=== PATIENT | male | born 1960 | race Caucasian/White ===

== ENCOUNTER → 2020-08-01 10:37 | Outpatient (CLI) | payer BC, SELFPAY ==
--- NOTE | 2020-08-01 | DI.US.S_ITS ---
PROCEDURE: US ABDOMEN COMPLETE INDICATIONS: Right upper quadrant pain TECHNIQUE: Real-time scanning was performed of the abdominal and retroperitoneal organs, with image documentation. COMPARISON: None. FINDINGS: Liver: The liver demonstrates normal size. The liver demonstrates generalized increased echogenicity. This decreases ultrasound sensitivity for detection of hepatic masses. Gallbladder: No findings of gallstones or sludge are seen. The gallbladder wall is not thickened, measuring 3 mm or less. No specific pericholecystic fluid is seen. The sonographic Álvarez sign is negative. Biliary ducts: Intrahepatic bile ducts are non-dilated. Extrahepatic bile duct caliber measures 1 mm. Normal is 6-7 mm or less in diameter, or 10 mm or less post-cholecystectomy. Pancreas: Not well seen. Spleen: Spleen is normal in size and homogeneous in echotexture. Kidneys: Kidneys are normal in size and echotexture. Right kidney measures 10.4 cm long; left kidney measures 10.1 cm long. No hydronephrosis or nephrolithiasis. No solid masses. Aorta: Visualized aorta is normal in caliber at less than 3 cm. Iliacs: Proximal common iliac arteries are normal in caliber at less than 2.5 cm. IVC: Intrahepatic inferior vena cava is patent. Miscellaneous: No free abdominal fluid. IMPRESSION: The gallbladder demonstrates a normal sonographic appearance. No biliary dilatation is seen. The liver demonstrates increased echogenicity. This finding is nonspecific, yet it is most commonly attributed to fatty infiltration. Dictated by: Jad Díaz M.D. on 08/01/2020 at 11:18 Approved by: Jad Díaz M.D. on 08/01/2020 at 11:19
== END ==
PROVIDERS: PCP Family Medicine; Referring Provider Family Medicine; Visit Provider Family Medicine
DX: R10.11 Right upper quadrant pain (principal)
CPT/HCPCS: 76700

== ENCOUNTER 2022-12-21 20:26 | Emergency (ER) | payer BC, SELFPAY ==
[2022-12-21 20:43] VITALS: BP 122/83; PULSE 67; RESP 16; TEMP 36.9; O2SAT 96; BMI 30.7
--- NOTE | 2022-12-21 20:50 | DI.RAD.S_ITS ---
PROCEDURE: XR ANKLE LT MIN 3V INDICATIONS: fall/injury TECHNIQUE: 3 views of the ankle were acquired. COMPARISON: None. FINDINGS: Bones: There is a mildly comminuted fracture of the calcaneus including involvement of the anterior process with extension to the subtalar joint. Ankle mortise is normally aligned. No suspicious bony lesions. Soft tissues: There is a small tibiotalar joint effusion. Achilles tendon appears intact. IMPRESSION: 1. Comminuted fracture of the calcaneus. Consider imaging of the spine to excluded a compression fracture. Dictated by: Paresh Ferguson M.D. on 12/21/2022 at 22:04 Approved by: Paresh Ferguson M.D. on 12/21/2022 at 22:06
--- NOTE | 2022-12-21 23:37 | DI.RAD.S_ITS ---
PROCEDURE: XR CALCANEOUS LT MIN 2V INDICATIONS: per ortho TECHNIQUE: Two views of the calcaneus were acquired. COMPARISON: [facility], CR, XR ANKLE LT MIN 3V, 12/21/2022, 20:59. FINDINGS: Bones: There is a comminuted fracture of the calcaneus with extension to the subtalar joint. No definite talar fracture. Soft tissues: No suspicious calcifications. Achilles tendon appears intact. IMPRESSION: 1. Comminuted fracture of the calcaneus with extension to the subtalar joint. Dictated by: Paresh Ferguson M.D. on 12/22/2022 at 0:35 Approved by: Paresh Ferguson M.D. on 12/22/2022 at 0:36
[2022-12-21 23:38] VITALS: PULSE 65; O2SAT 97
--- NOTE | 2022-12-21 23:42 | DI.RAD.S_ITS ---
PROCEDURE: XR HIP W PEL IF DONE LT 2V INDICATIONS: fall with heel fx, hip pain TECHNIQUE: AP pelvis with lateral view of the left hip. COMPARISON: [facility], CR, XR ANKLE LT MIN 3V, 12/21/2022, 20:59. FINDINGS: Bones: No displaced fractures or dislocations. Pelvic ring appears intact. No suspicious bony lesions. Soft tissues: The visualized bowel gas pattern is normal. No suspicious soft tissue calcifications. IMPRESSION: 1. No displaced fracture or dislocation. Dictated by: Paresh Ferguson M.D. on 12/22/2022 at 0:36 Approved by: Paresh Ferguson M.D. on 12/22/2022 at 0:37
--- NOTE | 2022-12-21 23:42 | DI.RAD.S_ITS ---
PROCEDURE: XR LUMBAR SPINE 2-3V INDICATIONS: fall with calcaneal fx TECHNIQUE: 3 views of the lumbar spine were acquired. COMPARISON: None. FINDINGS: Bones: 5 [id number] vertebrae are present. There is minimal retrolisthesis at T12-L1, L1-L2, L2-L3, L3-L4, and L4-5. No vertebral body compression fractures. There is mild facet arthropathy in the lower lumbar spine. No suspicious bony lesions. Soft tissues: Overlying bowel gas pattern is normal. No suspicious soft tissue calcifications. IMPRESSION: 1. No vertebral body compression fractures in the lumbar spine. Dictated by: Paresh Ferguson M.D. on 12/22/2022 at 0:37 Approved by: Paresh Ferguson M.D. on 12/22/2022 at 0:53
--- NOTE | 2022-12-21 23:51 | PC.NURSE ---
Pedal pulse of left foot heard by Doppler. Strong and regular. CMS intact of left foot.
[2022-12-22 00:05] VITALS: PULSE 66; O2SAT 98
[2022-12-22 00:30] VITALS: PULSE 65; O2SAT 94
--- NOTE | 2022-12-22 00:49 | DI.CT.S_ITS ---
PROCEDURE: CT LE LT W CON INDICATIONS: complex calcaneal fx, per ortho TECHNIQUE: Noncontrast 1-1.5 mm axial sections acquired from above the tibiotalar joint to the bottom of the calcaneus, with coronal and sagittal reformats. COMPARISON: , CR, XR ANKLE LT MIN 3V, 12/21/2022, 20:59. , CR, XR CALCANEOUS LT MIN 2V, 12/21/2022, 23:44. FINDINGS: Image quality: Excellent. Bones: There is a markedly comminuted fracture of the calcaneus with extension to the posterior facet of the subtalar joint. Fracture also extends anteriorly to the calcaneocuboid articulation. Remaining visualized osseous structures appear intact. Soft tissues: There are small subtalar and tibiotalar joint effusions. Soft tissue swelling and subcutaneous edema demonstrated within the hindfoot. The Achilles tendon appears intact. IMPRESSION: 1. Markedly comminuted calcaneal fracture. Dictated by: Paresh Ferguson M.D. on 12/22/2022 at 1:50 Approved by: Paresh Ferguson M.D. on 12/22/2022 at 1:53
[2022-12-22 01:00] VITALS: PULSE 65; O2SAT 95
[2022-12-22 01:30] VITALS: BP 146/76; PULSE 64; O2SAT 94
[2022-12-22] MEDS: HYDROCODONE/ACET 5/325 PREPACK 1 BOTTLE MISC (01:34)
[2022-12-22 01:36] VITALS: BP 146/76; PULSE 70; O2SAT 95
[2022-12-22 02:00] VITALS: BP 147/87; PULSE 63; O2SAT 95
--- NOTE | 2022-12-22 02:36 | ED_ITS ---
HPI - Fall General Chief Complaint: Fall Stated Complaint: fell from ladder/hurt left ankle Time Seen by Provider: 12/21/22 20:47 Source: patient Mode of arrival: Wheelchair History of Present Illness HPI Narrative: 62-year-old male nonsmoker with noncontributory medical history presents with his in the chief complaint of left foot pain. He had been climbing on a ladder when he misstepped and fell a reported 4 ft landing on his left foot. He denies any head neck or back pain. He has no chest pain or shortness of breath. He denies any upper extremity injury. As the day wears on he states he is starting no some pain in his left lateral hip and wonders if he might have injured himself here as well. He very clearly states he has no back pain. He denies any numbness, tingling or weakness. He has no urinary complaints. Related Data Previous Rx's Medication Instructions Recorded hydrocodone 5 mg-acetaminophen 325 1 tab PO Q4-6H PRN pain #20 tabs 12/22/22 mg tablet ondansetron 4 mg disintegrating 4 mg PO TID-QID PRN nausea and 12/22/22 tablet vomiting #10 tabs Review of Systems Review of Systems Narrative: GENERAL: Denies chills, fatigue, malaise, fever, sweats. HEENT: Denies sinus pain, ear pain, sore throat, difficulty swallowing, dizziness. RESPIRATORY: Denies dyspnea, cough, wheezing, hemoptysis, sputum. CARDIOVASCULAR: Denies chest pain, palpitations, orthopnea, edema, GASTROINTESTINAL: Denies nausea, vomiting, abdominal pain, diarrhea, constipation, melena. : Denies dysuria, frequency, incontinence, hematuria, urinary retention. MUSCULOSKELETAL: See HPI SKIN: Denies rash, skin lesions, or other NEUROLOGIC: Denies weakness, headache, numbness, change in speech, confusion, seizures, incoordination. PSYCHIATRIC: No concerning psychosocial issues. 12 point review of systems is negative except for those stated above Patient History Social History Smoking Status: Never smoker Smoking Status: Never smoker Substance Use Type: does not use Exam Narrative Exam Narrative: GENERAL: [62] year old patient appears stated age. Well-developed patient, in mild distress. GCS 15 HEAD: Atraumatic. Normocephalic. EYES: Pupils equal round and reactive. Extraocular motions intact. No scleral icterus. No injection or drainage. ENT: Nose without bleeding, purulent drainage. Throat without erythema, tonsillar hypertrophy or exudate. Airway patent. NECK: Trachea midline. Non tender CARDIOVASCULAR: Regular rate and rhythm without murmurs, gallops, or rubs. RESPIRATORY: Clear to auscultation. Breath sounds equal bilaterally. No wheezes, rales, or rhonchi. GASTROINTESTINAL: Abdomen soft, non-tender, nondistended. EXTREMITIES: Mild tenderness to palpation of left lateral hip, no obvious deformity, shortening or rotation of lower extremity. No pain on palpation of femur or knee. Minimal pain on palpation of ankle, there is significant tenderness on palpation of heel. This is closed, isolated and neurovascularly intact BACK: Nontender without deformity or crepitance. No flank tenderness. No saddle anesthesia NEURO: AOx3. SKIN: No rash or erythema of visible areas Initial Vital Signs Initial Vital Signs: Vital Signs Temperature 98.4 F 12/21/22 20:43 Pulse Rate 67 12/21/22 20:43 Respiratory Rate 16 12/21/22 20:43 Blood Pressure 122/83 12/21/22 20:43 Pulse Oximetry 96 12/21/22 20:43 Oxygen Delivery Method Room Air 12/21/22 20:43 Procedures Orthopedic Splinting/Casting Injury #1: Side: left Lower Extremity Injury Location: foot Lower Extremity Immobilizer: posterior splint and stirrup splint Other Orthopedic Equipment: crutches Post splinting neuro exam: intact Post splinting vascular exam: intact Placed by: Nursing Course Orders Ordered: ED Orders 12/21/22 20:50 XR ankle LT min 3V Stat 12/21/22 23:37 XR calcaneus LT min 2V Stat 12/21/22 23:42 XR hip w pel if done LT 2V Stat XR lumbar spine 2-3V Stat 12/22/22 00:49 CT LE LT wo con Stat Discontinued Medications Hydrocodone Bitart/Acetaminophen (Hydrocodone/Acet 5/325 Prepack) 1 bottle MISC SEEINSTR ONE Stop: 12/21/22 23:43 Last Admin: 12/22/22 01:34 Dose: 1 bottle Documented By: SB Consultations Consultation #1: Discussed with on-call orthopedist, Dr. Gonzalez, after receipt of initial x-ray he requests dedicated calcaneal x-ray as well as CT, large bulky dressing, nonweightbearing, pain control and DC with follow up Vital Signs Vital signs: Vital Signs - 8 hr 12/21/22 20:43 12/21/22 23:38 12/22/22 00:05 Temperature 98.4 F Pulse Rate 67 65 66 Respiratory Rate 16 Blood Pressure 122/83 Pulse Oximetry 96 97 98 Oxygen Delivery Method Room Air 12/22/22 00:30 12/22/22 01:00 12/22/22 01:30 Temperature Pulse Rate 65 65 64 Respiratory Rate Blood Pressure 146/76 H Pulse Oximetry 94 95 94 Oxygen Delivery Method 12/22/22 01:36 12/22/22 01:36 12/22/22 02:00 Temperature Pulse Rate 70 Respiratory Rate Blood Pressure 146/76 H 147/87 H Pulse Oximetry 95 Oxygen Delivery Method 12/22/22 02:00 Temperature Pulse Rate 63 Respiratory Rate Blood Pressure Pulse Oximetry 95 Oxygen Delivery Method MDM - Fall Imaging Data Extremity x-ray #1: Radiologist's Impression: Comminuted fracture of calcaneus [facility] Narrative Medical decision making narrative: [61] year old patient presents with left foot pain after fall Multiple etiologies for patient's symptoms considered including, but not limited to: Fracture, dislocation, sprain, contusion versus other [] Prior Charts reviewed in our EMR Primary Historian: patient Imaging reviewed: Multiple imaging modalities demonstrate comminuted left calcaneal fracture Consultations: Discussion with on-call orthopedist as noted above Patient's symptoms improved over duration of stay with above-stated therapies. Findings and discharge diagnosis discussed with patient/family followed by verbalization of understanding Return precautions discussed with patient/family whom verbalize understanding of diagnosis and plan Discharge Plan Departure Patient Disposition: Home Clinical Impression: Calcaneal fracture Instructions: DI for Foot Fracture Activity Restrictions/Additional Instructions: *You have been diagnosed with [comminuted left calcaneal fracture] *What to do: *Please continue to take your regular medications as directed. [ x] New medication prescriptions sent to your pharmacy: [[facility]] [ ] New medication written as a paper prescription [x] Tylenol and occasional Motrin for pain *Please follow up with Dr. Tejada ] of [facility] in 2-3 days, call for an appointment. Let them know you were seen in the Emergency Department and that we ask that you be seen in follow up. We will electronically transmit a record of today's note if your PCP is in our system *Return to Emergency Department if you should have any new, worsening or concerning symptoms, such as [worsening pain, significant swelling, cold extremities, numbness, tingling, weakness or other bothersome symptoms NO WEIGHT BEARING Splint Care: Keep splint clean and dry. Elevated affected body part to decrease swelling. OK to use ice pack on the affected body part. Use for 15-20 minutes each time, for 5-6x per day. If you develop worsening pain, numbness, tingling, discoloration of the affected body part, loosen the splint by loosening the OREN wrap, and either see your doctor for an urgent re-assessment, or return to the Emergency Department. Return to the Emergency Department for any new or worsening symptoms. Prescriptions: New hydrocodone-acetaminophen 5-325 mg tablet 1 tab PO Q4-6H PRN (Reason: pain) Qty: 20 0RF ondansetron 4 mg tablet,disintegrating 4 mg PO TID-QID PRN (Reason: nausea and vomiting) Qty: 10 0RF Referrals: Terrance Gonzalez MD [Physician] - Jonathan Stratton MD [Primary Care Provider] - Stand Alone Forms: Patient Portal/API
== END 2022-12-22 03:35 | disposition home or self-care (01) ==
PROVIDERS: Emergency Provider Emergency Medicine; PCP Family Medicine
DX: S92.002A Unspecified fracture of left calcaneus, initial encounter for closed fracture (principal); M25.552 Pain in left hip; W11.XXXA Fall on and from ladder, initial encounter
CPT/HCPCS: 29125; 72100; 73502; 73610; 73650; 73700; 99283; 99284